=== PATIENT | male | born 1995 | race Caucasian/White ===

== ENCOUNTER 2016-11-05 15:07 | Emergency (ER) | payer OTHER ==
[~2016-11-05] VITALS: Ht 177.8 cm; Wt 83.6 kg
[2016-11-05 15:10] VITALS: TEMP 37; Ht 177.8 cm; Wt 83.6 kg
--- NOTE | 2016-11-05 15:55 | DIAGNOSTIC IMAGING REPORT ---
RIGHT KNEE 3 VIEWS CLINICAL HISTORY: fall, right knee injury Right trauma COMPARISON: None. DISCUSSION: Small benign bony exostosis medial femoral epicondylar region. All major joint spaces are preserved. No significant joint effusion. No evidence for fracture or dislocation. There is no evidence for soft tissue swelling. IMPRESSION: Negative study. Electronically signed by: Zach Bennett M.D. 11/05/2016 3:53 PM Dictated Date/Time: 11/05/2016 3:53 PM
--- NOTE | 2016-11-05 15:56 | DIAGNOSTIC IMAGING REPORT ---
RIGHT HIP 2 VIEWS HISTORY: fall, right hip injury, hx hip replacement Right COMPARISON: None. FINDINGS: No acute fracture or dislocation within the right hip. There is a right total hip arthroplasty. The hardware appears intact. Small amount of heterotopic ossification at the right hip. Otherwise, the soft tissues are unremarkable. IMPRESSION: No acute fracture or dislocation within the right hip. Electronically signed by: Elieser Nicole M.D. 11/05/2016 3:55 PM Dictated Date/Time: 11/05/2016 3:53 PM
[2016-11-05] MEDS ORDERED: IBUP-1050 PO (16:02)
--- NOTE | 2016-11-05 16:10 | EMERGENCY ROOM VISIT NOTE ---
ED Visit Note First contact with patient: 15:14 CHIEF COMPLAINT: Right hip and knee pain HISTORY OF PRESENT ILLNESS: This 21-year-old male patient presents to the emergency department ambulatory after a fall. The patient states that he tripped over a baby gate this morning and fell down several stairs, injuring his right knee and right hip. The patient has a history of right hip replacement secondary to avascular necrosis. He sees an orthopedic provider in [place]. The patient denies any swelling or bruising. There is pain which is worse with walking. They rate the pain as sharp and 7/10. The patient states they are able to walk on it. No numbness or tingling. No previous injuries to this knee. No ankle, foot or hip pain. REVIEW OF SYSTEMS: A 6 system review of systems was completed with positives and pertinent negatives listed in the HPI. ALLERGIES: No drug allergies MEDICATIONS: No chronic medications PMH: Right hip replacement SOCIAL HISTORY: The patient lives locally with his family. He is a smoker. He denies alcohol use. PHYSICAL EXAM: Vital Signs: Reviewed Nurse's notes, vital signs stable. GENERAL : This is a 21-year-old male, no acute distress, but appears in pain, well- developed, well-nourished. MENTAL STATUS: Alert, oriented to person place and time, and cooperative. MUSCULOSKELETAL: No deformities of the right hip or right knee. There is no significant edema or ecchymosis. There is tenderness over the right lateral hip and the right lateral knee. Full range of motion of all extremities. Strength 5/5. The foot and toes are warm and well-perfused. Dorsalis pedis pulse 2+. Sensation to pain and light touch is intact. Capillary refill less than 2 seconds. RADIOGRAPHIC FINDINGS: RIGHT HIP 2 VIEWS FINDINGS: No acute fracture or dislocation within the right hip. There is a right total hip arthroplasty. The hardware appears intact. Small amount of heterotopic ossification at the right hip. Otherwise, the soft tissues are unremarkable. IMPRESSION: No acute fracture or dislocation within the right hip. RIGHT KNEE 3 VIEWS DISCUSSION: Small benign bony exostosis medial femoral epicondylar region. All major joint spaces are preserved. No significant joint effusion. No evidence for fracture or dislocation. There is no evidence for soft tissue swelling. IMPRESSION: Negative study. EMERGENCY DEPARTMENT COURSE: I examined the patient. X-rays of the right hip and knee were reviewed by myself and read by radiology and reveal no acute fractures. The patient has crutches at home and will use these as needed. He was instructed to follow-up with his established orthopedic provider. Conservative measures were discussed. The patient verbalizes understanding of my assessment and treatment plan. The patient was discharged home in good condition. DIAGNOSIS: Fall, right hip and knee contusions Problem List Medical Problems: (1) Arthritis of back Status: Chronic (2) Avascular necrosis Status: Chronic (3) Back pain Status: Chronic (4) Heroin addiction Status: Resolved (5) Slipped intervertebral disc Status: Chronic Current/Historical Medications Scheduled PRN Ibuprofen (Advil), 800 MG PO DIRECTED PRN for Pain Allergies Coded Allergies: Cat Dander (Verified Allergy, Intermediate, itchy, 11/05/16) Vital Signs Date Time Temp Pulse Resp B/P Pulse Ox O2 Delivery O2 Flow Rate FiO2 11/05/16 16:16 78 20 126/72 96 11/05/16 15:10 37.0 100 20 133/83 100 Room Air Departure Information Impression Primary Impression: Fall down stairs Additional Impressions: Contusion of right hip Contusion of right knee Dispostion Home / Self-Care Condition GOOD Referrals No Doctor, Assigned (PCP) Patient Instructions My [facility] Additional Instructions You have been treated in the Emergency Department for Knee and hip Pain. For pain control, you can use the following [id number]-gvncpem medicines (if >12 yo): - Regular strength (325mg/tab) Tylenol (acetaminophen) 2 tabs every 4-6 hours as needed. Do not exceed 12 tablets in a 24 hour period. Avoid taking more than 4 grams (4000 mg) of Tylenol per day. This includes any other sources of acetaminophen you may take on a regular basis. - Regular strength (200 mg/tab) Advil (ibuprofen) 1-2 tabs every 4-6 hours as needed. Do not exceed a dose of 3200 mg per day. If this is a recent injury (<24 hrs), ice can be applied to the area of pain for the first 3 days to help decrease pain and inflammation. Ice massages can be performed by freezing water in a paper cup, peeling back the cup to expose the ice and then massaging over the affected area. Follow-up with your established orthopedic surgeon for further evaluation. Use your crutches or walker as needed for aid with ambulation. Return to the Emergency Department if your current symptoms worsen despite treatment course outlined above. Problem Qualifiers Primary Impression: Fall down stairs Encounter type: initial encounter Qualified Codes: W10.8XXA - Fall (on) ( from) other stairs and steps, initial encounter Additional Impressions: Contusion of right hip Encounter type: initial encounter Qualified Codes: S70.01XA - Contusion of right hip, initial encounter Contusion of right knee Encounter type: initial encounter Qualified Codes: S80.01XA - Contusion of right knee, initial encounter
[2016-11-05 16:16] VITALS: BP 126/72; PULSE 78; O2SAT 96
== END 2016-11-05 16:17 | disposition home or self-care (01) ==
LOC: C.EDB 15:09 → C.EDD 16:17
DX: S70.01XA Contusion of right hip, initial encounter (principal); S80.01XA Contusion of right knee, initial encounter; W10.8XXA Fall (on) (from) other stairs and steps, initial encounter; F17.200 Nicotine dependence, unspecified, uncomplicated; Z96.641 Presence of right artificial hip joint

== ENCOUNTER 2017-01-13 08:18 | Emergency (ER) | payer OTHER ==
[~2017-01-13] VITALS: Ht 177.8 cm; Wt 79.6 kg
[~2017-01-13 08:18] MED LIST: IBUP-1050 PO
[2017-01-13 08:19] VITALS: TEMP 36.7; Ht 177.8 cm; Wt 79.6 kg
[2017-01-13] MEDS ORDERED: UNKNOWN MED (08:38)
[2017-01-13] MEDS ORDERED: HYDR-5688 PO (09:00)
[2017-01-13] MEDS ORDERED: PENI500T2 PO (09:00)
--- NOTE | 2017-01-13 09:01 | EMERGENCY ROOM VISIT NOTE ---
ED Visit Note First contact with patient: 08:33 CHIEF COMPLAINT: Upper and lower dental pain 1 week HISTORY OF PRESENT ILLNESS: Patient is a 21-year-old white male who presents to the emergency department for evaluation of dental pain. He's had problems with his upper and lower left-sided teeth, particularly his canines and his molars for a couple of months. He has seen a dentist and is apparently being referred to an oral surgeon. He has several cavities, but will have to have the teeth extracted. The pain is intolerable until just recently. He became unbearable yesterday. He can't eat or sleep and has become nauseous due to the pain. He has used Orajel, Anbesol, Tylenol and ibuprofen without relief of his pain which he presently rates an 8/10. He denies any pus developed 60 potent smell. No drainage or discharge from the teeth. No facial swelling or fever. REVIEW OF SYSTEMS: Review of systems as per HPI. All other systems reviewed were negative. At least 6 systems reviewed. PMH: Electronic medical records are reviewed and summarized as above/below. See Problem List. SOCIAL HISTORY: Patient lives at home. Employed. PHYSICAL EXAM: Vital Signs: Reviewed Nurse's notes. CONSTITUTIONAL: Patient is a well-appearing 1-year-old white male who is awake and alert and in no acute distress. Vital signs are stable. EARS: Tympanic membranes intact, not inflamed, have normal contour. External canals clear. MOUTH: Overall the patient has fair dentition. He has tenderness to percussion of the left upper rear molars. There are a few cavities noted. There is slight swelling along the gumline although no focal abscess. Mucous membranes moist, no lesions, tongue and gums appear normal. THROAT: No pharyngeal injection, exudates, or tonsillar hypertrophy. Airway is patent. No trismus noted. FACE: No facial swelling is appreciated. No cellulitic changes. NECK: No lymphadenopathy. ED course: Patient was seen and assessed as above. His old records were reviewed. He was given a prescription for Pen-Vee K 2 cover for infection and Bagley for pain until he can be seen by the oral surgeon. He is advised that the emergency department does not provide chronic pain medications and any further prescriptions will need to come from his dentist, PCP or oral surgeon. He does not have any evidence for facial cellulitis or Familia's. No drainable abscess. Patient was reviewed in the [facility] Prescription Drug Monitoring Program, and there were no controlled substance prescriptions within the last year. Problem List Medical Problems: (1) Arthritis of back Status: Chronic (2) Avascular necrosis Status: Chronic (3) Back pain Status: Chronic (4) Heroin addiction Status: Resolved (5) Slipped intervertebral disc Status: Chronic Surgical Problems: (1) H/O total hip arthroplasty Permanent Comment: avascular necrosis, 10/2015 Status: Resolved Current/Historical Medications Scheduled Penicillin V Potassium (Veetids), 500 MG PO QID Scheduled PRN Hydrocodone/Acetaminophen 5MG/325MG (Bagley 5MG/325MG), 1-2 TABLETS PO Q4 PRN for Pain Ibuprofen (Advil), 800 MG PO DIRECTED PRN for Pain Miscellaneous Medications [Unknown Med] Allergies Coded Allergies: Cat Dander (Verified Allergy, Intermediate, itchy, 01/13/17) Vital Signs Date Time Temp Pulse Resp B/P Pulse Ox O2 Delivery O2 Flow Rate FiO2 01/13/17 09:13 56 128/80 98 01/13/17 08:19 36.7 66 16 130/88 97 Room Air Departure Information Impression Primary Impression: Dentalgia Prescriptions Penicillin V Potassium (VEETIDS) 500 Mg Tab 500 MG PO QID, #40 TAB Prov: Johnna Rivers PA 01/13/17 Hydrocodone/Acetaminophen 5MG/325MG (Bagley 5MG/325MG) Tab 1-2 TABLETS PO Q4 Y for Pain, #20 TAB For Initial Treatment Prov: Johnna Rivers PA 01/13/17 Referrals No Doctor, Assigned (PCP) Patient Instructions My [facility] Additional Instructions Penicillin 500mg: Take one pill four times daily for 10 days for your dental infection. All antibiotics can cause diarrhea. If this occurs and you feel worse or it does not resolve in 1-2 days follow up with your doctor or return to the Emergency Department as this could be signs of serious underlying problems. Any medication can cause an allergic reaction, stop the pills immediately and return to the ER for rash, hives, breathing difficulties, or swelling. Ibuprofen(Motrin, Advil) may be used for fever or pain. Use 600mg every six hours as needed. Take with food. Avoid using more than 2400mg in a 24 hour period. Do not use 2400mg per day for more than three consecutive days without physician direction. Prolonged inappropriate use can lead to stomach upset or ulcers. (AND/OR) Acetaminophen(Tylenol) may be used for fever or pain. Use 1000mg every six hours as needed. Avoid using more than 4000mg in a 24 hour period. Hydrocodone/Acetaminophen (Bagley) 5/325 mg: Take 1-2 pills every four hours for breakthrough pain. Avoid alcohol, operating machinery or dangerous equipment, working on ladders or roofs, DRIVING, or situations where being under the influence may be dangerous. It is recommended to use an lagv-wrn-wavsmxt stool softener such as Colace, 100mg twice daily while taking this medication to avoid constipation. Saltwater gargles after meals and before bedtime. Soft foods. Followup with your dentist/oral surgeon for definitive management. You may also follow up with your primary care physician for pain/care management until you can be seen by your dentist.
[2017-01-13 09:13] VITALS: BP 128/80; PULSE 56; O2SAT 98
== END 2017-01-13 09:10 | disposition home or self-care (01) ==
LOC: C.EDB 08:19
DX: K08.89 Other specified disorders of teeth and supporting structures (principal); M47.9 Spondylosis, unspecified; M87.059 Idiopathic aseptic necrosis of unspecified femur; F11.21 Opioid dependence, in remission; Z96.649 Presence of unspecified artificial hip joint

== ENCOUNTER 2017-03-24 00:13 | Emergency (ER) | payer OTHER ==
[~2017-03-24] VITALS: Ht 177.8 cm; Wt 77.2 kg
[~2017-03-24 00:13] MED LIST changes: +HYDR-5688 PO; +UNKNOWN MED
[2017-03-24 00:27] VITALS: BP 131/83; PULSE 101; TEMP 36.7; O2SAT 96; Ht 177.8 cm; Wt 77.2 kg
--- NOTE | 2017-03-24 01:05 | EMERGENCY ROOM VISIT NOTE ---
History Report prepared by Scribe: Isadora Yu Under the Supervision of: Dr. Suzi Duran D.O. First contact with patient: 00:30 Chief Complaint: HAND PAIN/INJURY Stated Complaint: RIGHT HAND History of Present Illness The patient is a 21 year old male who presents to the Emergency Room with complaints of persistent right hand pain for the past few hours. He reports he was working on his car when his hand slipped off a wrench and smacked the car. His hand is now swollen and painful. He rates his discomfort as a 7/10 in severity. Movement worsens his pain. He can still feel normal sensation in the fingers of his right hand. He denies any pain in the wrist or elbow. The patient notes he has never injured his right hand before and he has no other complaints at today's visit. 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 A total of 10 systems reviewed and were otherwise negative. Past Medical & Surgical Medical Problems: (1) Arthritis of back (2) Avascular necrosis (3) Back pain (4) Heroin addiction (5) Slipped intervertebral disc Surgical Problems: (1) H/O total hip arthroplasty Family History Diabetes mellitus FHx: gallbladder disease Kidney stones Social History Smoking Status: Current Every Day Smoker Alcohol Use: none Drug Use: none Marital Status: single Housing Status: lives with family Occupation Status: unemployed Current/Historical Medications Scheduled PRN Ibuprofen (Advil), 600-800 MG PO DIRECTED PRN for Pain Allergies Coded Allergies: Cat Dander (Verified Allergy, Intermediate, itchy, 01/13/17) Physical Exam Vital Signs Date Time Temp Pulse Resp B/P (MAP) Pulse Ox O2 Delivery O2 Flow Rate FiO2 03/24/17 00:27 36.7 101 19 131/83 96 Room Air Physical Exam Extremities: Hematoma to the dorsal aspect of the right hand, at the base of the 3rd and 4th fingers. Good sensation to tips of fingers, good capillary refill. No pain in the wrist. Pain over area of hematoma. No evidence of cyanosis, clubbing, or edema. There are easily palpable peripheral pulses. Medical Decision & Procedures ER Provider Diagnostic Interpretation: Radiology results as stated below per my review and the radiologist's interpretation: RIGHT HAND 3 VIEWS CLINICAL HISTORY: Right hand injury. FINDINGS: 3 views of the right hand are compared to study dated 12/15/2011. The skeletal structures are well mineralized. No fracture is seen. The joint spaces of the hand are well-maintained. A benign-appearing sclerotic focus is again seen in the fourth distal phalanx. Soft tissue edema is present dorsally. IMPRESSION: Soft tissue swelling with no radiographic evidence of right hand fracture. Electronically signed by: Kraig Hernández M.D. 03/24/2017 1:11 AM Medications Administered Medications (Trade) Dose Ordered Sig/Adriano Route Start Time Stop Time Status Last Admin Dose Admin Ibuprofen (Motrin Tab) 800 mg NOW STAT PO 03/24/17 01:16 03/24/17 01:17 DC 03/24/17 01:21 800 MG Procedure Ibuprofen PO. ED Course 0052: Past medical records reviewed. The patient was evaluated in room A7. A complete history and physical exam was performed. 0116: Ibuprofen 800 mg PO. The patient went for plain films of the right hand as described above. 0120: I reevaluated the patient. He is feeling better. I discussed his test results and discharge instructions and he verbalized complete understanding and agreement. Medical Decision I attest that I have personally reviewed the patient's current medication list. The patient is a 21 year old male who presents to the ED with right hand pain. Differential diagnosis includes: hand contusion, fracture and dislocation. X-ray revealed no evidence of an acute fracture. This appears to be an acute hematoma/contusion. I've encouraged patient to continue to apply ice to the wound and use NSAIDs or Tylenol for pain. Impression Primary Impression: Contusion of right hand Scribe Attestation The scribe's documentation has been prepared under my direction and personally reviewed by me in its entirety. I confirm that the note above accurately reflects all work, treatment, procedures, and medical decision making performed by me. Departure Information Dispostion Home / Self-Care Referrals No Doctor, Assigned (PCP) Patient Instructions ED Contusion Hand, My [facility] Additional Instructions Elevate the right hand. apply ice to the hand. Take tylenol and ibuprofen
--- NOTE | 2017-03-24 01:13 | DIAGNOSTIC IMAGING REPORT ---
RIGHT HAND 3 VIEWS CLINICAL HISTORY: Right hand injury. FINDINGS: 3 views of the right hand are compared to study dated 12/15/2011. The skeletal structures are well mineralized. No fracture is seen. The joint spaces of the hand are well-maintained. A benign-appearing sclerotic focus is again seen in the fourth distal phalanx. Soft tissue edema is present dorsally. IMPRESSION: Soft tissue swelling with no radiographic evidence of right hand fracture. Electronically signed by: Kraig Hernández M.D. 03/24/2017 1:11 AM Dictated Date/Time: 03/24/2017 1:09 AM
[2017-03-24] MEDS ORDERED: IBUPROFEN 800 MG TAB PO STA (01:16)
== END 2017-03-24 01:34 | disposition home or self-care (01) ==
LOC: C.EDB 00:15 → C.EDA 01:34
DX: S60.221A Contusion of right hand, initial encounter (principal); W22.8XXA Striking against or struck by other objects, initial encounter; Y92.89 Other specified places as the place of occurrence of the external cause; F17.210 Nicotine dependence, cigarettes, uncomplicated; Z83.3 Family history of diabetes mellitus; Z83.79 Family history of other diseases of the digestive system; Z84.1 Family history of disorders of kidney and ureter

== ENCOUNTER 2017-06-05 01:24 | Emergency (ER) | payer OTHER ==
[~2017-06-05] VITALS: Ht 177.8 cm; Wt 76.8 kg
[~2017-06-05 01:24] MED LIST changes: -HYDR-5688 PO; -UNKNOWN MED
[2017-06-05 01:28] VITALS: TEMP 36.9; Ht 177.8 cm; Wt 76.8 kg
[2017-06-05] MEDS ORDERED: OXYCODONE HCL IR 5 MG TAB (IMMEDIATE RELEASE) PO STA (02:03)
[2017-06-05] MEDS ORDERED: OXYCODONE IR HOME PACK PO ONE (02:15)
--- NOTE | 2017-06-05 02:24 | EMERGENCY ROOM VISIT NOTE ---
History Report prepared by Miquel: Paulo Bear Under the Supervision of: Dr. Nikko Sommer M.D. First contact with patient: 01:35 Chief Complaint: HAND PAIN/INJURY Stated Complaint: BROKEN LEFT HAND History of Present Illness The patient is a 22 year old male who presents to the Emergency Room with complaints of constant left hand pain beginning just prior to arrival. He states that he had his hand crushed in a door at the grocery store. He has not taken anything for his pain. The patient has no history of anxiety. He denies any recreational drug use today. He denies any numbness to his hand. Source of History: patient Onset: Just prior to arrival Position: hand (left) Timing: constant Associated Symptoms: No numbness Review of Systems See HPI for pertinent positives & negatives. A total of 10 systems reviewed and were otherwise negative. Past Medical & Surgical Medical Problems: (1) Arthritis of back (2) Avascular necrosis (3) Back pain (4) Heroin addiction (5) Slipped intervertebral disc Surgical Problems: (1) H/O total hip arthroplasty Family History Diabetes mellitus FHx: gallbladder disease Kidney stones Social History Smoking Status: Never Smoker Alcohol Use: none Drug Use: none Marital Status: single Housing Status: lives with family Occupation Status: unemployed Current/Historical Medications Scheduled PRN Ibuprofen (Advil), 600-800 MG PO Q6 PRN for Pain Oxycodone Ir (Roxicodone Ir), 1-2 TAB PO Q4H PRN for Pain Allergies Coded Allergies: Cat Dander (Verified Allergy, Intermediate, itchy, 06/05/17) Physical Exam Vital Signs Date Time Temp Pulse Resp B/P (MAP) Pulse Ox O2 Delivery O2 Flow Rate FiO2 06/05/17 03:08 86 18 130/84 96 Room Air 06/05/17 01:28 36.9 127 40 155/89 99 Room Air Physical Exam GENERAL: Patient is severely agitated. Hyperventilating. Pain far out of proportion to the actual injury. HEENT: No acute trauma, normocephalic atraumatic, mucous membranes moist, no nasal congestion, no scleral icterus. NECK: No stridor, no adenopathy, no meningismus, trachea is midline. EXTREMITIES: Abrasion and bruising over the top of the left hand. Mild bruising of the palm. Can move all digits, but refuses to do so during exam. Sensation intact. NEUROLOGIC: Alert and oriented, no acute motor or sensory deficits, no focal weakness, cranial nerves grossly intact. SKIN: No rash, no jaundice, no diaphoresis. Medical Decision & Procedures ER Provider Diagnostic Interpretation: Three View Left Hand X-ray interpreted by me: distal second metacarpal fracture. Mid-shaft third and fourth metacarpal fractures. Mild displacement. Medications Administered Medications (Trade) Dose Ordered Sig/Adriano Route Start Time Stop Time Status Last Admin Dose Admin Oxycodone HCl (Roxicodone Immediate Rel Tab) 5 mg NOW STAT PO 06/05/17 02:03 06/05/17 02:05 DC 06/05/17 02:13 5 MG Oxycodone HCl (Roxicodone Immediate Rel 5MG Home Pack) 1 homepack UD ONCE PO 06/05/17 02:15 06/05/17 02:16 DC 06/05/17 02:51 1 HOMEPACK ED Course 0136: The patient was evaluated in room A11B. A complete history and physical exam was performed. 0200: I reassessed the patient. He has calmed down. I had an extensive conversation with the patient about the risks of using narcotic pain medication , especially given his history of drug use. 0203: Ordered Roxicodone Immediate Rel Tab 5 mg PO. 0215: Ordered Roxicodone Immediate Rel 5 mg home pack PO. 0230: Reevaluated the patient. He has had a splint placed. Discussed results and discharge instructions: he verbalized understanding and agreement. The patient is ready for discharge. Medical Decision 22 yr old male with crush injury to left hand in door arrives in severe panic attack. Was able to calm himself down and imaging obtained. Fractures left 2,3 ,4 metacarpals which suspect will need pinning at some point. No neuro/ vascular compromise though exam limited secondary to anxiety of patient. Patient given Oxy IR for pain control with understanding at length its risks of addition and abuse and even risk of . Though with clearly fractured hand I feel that pain control will be needed. Splint to hand and to follow up with Ortho in near future with help of Case Management. [place] Drug Monitoring Program Search Results: patient reviewed within database, see additional documentation Drug Monitoring Findings: Single narcotic prescription from December 2015 Medication Reconcilliation Current Medication List: was personally reviewed by me Blood Pressure Screening Patient's blood pressure: Elevated blood pressure Blood pressure disposition: Elevated BP felt to be situational Impression Primary Impression: Closed left hand fracture Scribe Attestation The scribe's documentation has been prepared under my direction and personally reviewed by me in its entirety. I confirm that the note above accurately reflects all work, treatment, procedures, and medical decision making performed by me. Departure Information Dispostion Home / Self-Care Prescriptions Oxycodone Ir (Roxicodone Ir) 5 Mg Tab 1-2 TAB PO Q4H Y for Pain, #15 TAB Prov: Nikko Sommer M.D. 06/05/17 Referrals Prateek Almeida MD Patient Instructions ED Fx Jeramy, My [facility] Additional Instructions It is very important that you follow up with the Orthopedics to have your hand evaluated as you may require surgery. You have received a narcotic pain medication prescription. These medications may cause drowsiness and should not be used with other sedative medications. Do not drive, drink alcohol, perform dangerous activities, nor make important decisions after taking these medications. tank terminal gauger use or inappropriate use may lead to addiction. These medications as severely addictive.
[2017-06-05] MEDS ORDERED: OXYC1TAB3 PO (02:49)
[2017-06-05 03:08] VITALS: BP 130/84; PULSE 86; O2SAT 96
--- NOTE | 2017-06-05 07:19 | DIAGNOSTIC IMAGING REPORT ---
LEFT HAND MIN 3 VIEWS ROUTINE CLINICAL HISTORY: 22 years-old Male presenting with left hand/palm crush injury. TECHNIQUE: Frontal, bilateral oblique, and lateral views of the left hand were obtained. COMPARISON: 12/15/2011. FINDINGS: Transverse mid diaphyseal fractures of the third and fourth metacarpals noted. Minimal apex volar angulation at the fracture sites. Approximately one half shaft width volar displacement of the distal fracture fragments. Possibly comminuted, obliquely oriented fracture of the neck of the second metacarpal. No significant displacement at the comminuted second metacarpal fracture. Mild soft tissue swelling in the hand. IMPRESSION: Displaced and minimally angulated fractures of the third and fourth metacarpal diaphyses. No significant displacement at the comminuted second metacarpal neck fracture. Electronically signed by: Star Tinsley M.D. 06/05/2017 7:18 AM Dictated Date/Time: 06/05/2017 7:14 AM
== END 2017-06-05 03:19 | disposition home or self-care (01) ==
LOC: C.EDB 01:25 → C.EDA 03:19
DX: S62.92XA Unspecified fracture of left hand, initial encounter for closed fracture (principal); W23.0XXA Caught, crushed, jammed, or pinched between moving objects, initial encounter; Y92.89 Other specified places as the place of occurrence of the external cause; M19.90 Unspecified osteoarthritis, unspecified site; Z96.649 Presence of unspecified artificial hip joint; Z91.09 Other allergy status, other than to drugs and biological substances; Z83.3 Family history of diabetes mellitus; Z83.79 Family history of other diseases of the digestive system; Z84.1 Family history of disorders of kidney and ureter

== ENCOUNTER 2017-11-19 12:01 | Emergency (ER) | payer OTHER ==
[~2017-11-19] VITALS: Ht 177.8 cm; Wt 78.0 kg
[~2017-11-19 12:01] MED LIST changes: +OXYC1TAB3 PO
[2017-11-19] MEDS ORDERED: BSP/10 PO (12:06)
[2017-11-19 12:09] VITALS: TEMP 36.6; Ht 177.8 cm; Wt 78.0 kg
[2017-11-19] MEDS ORDERED: ACETAMINOPHEN 500 MG TAB PO STA (12:29)
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
[2017-11-19 13:59] VITALS: BP 125/88; PULSE 96; O2SAT 98
== END 2017-11-19 14:00 | disposition home or self-care (01) ==
LOC: EDBD 12:01 → C.EDB 12:02
DX: S29.019A Strain of muscle and tendon of unspecified wall of thorax, initial encounter (principal); S70.01XA Contusion of right hip, initial encounter; S80.01XA Contusion of right knee, initial encounter; S09.90XA Unspecified injury of head, initial encounter; V89.2XXA Person injured in unspecified motor-vehicle accident, traffic, initial encounter; Z96.641 Presence of right artificial hip joint; F17.200 Nicotine dependence, unspecified, uncomplicated; Z87.898 Personal history of other specified conditions; Z83.3 Family history of diabetes mellitus; Z83.79 Family history of other diseases of the digestive system; Z84.1 Family history of disorders of kidney and ureter; Z91.048 Other nonmedicinal substance allergy status